=== PATIENT | female | born 1990 | race Caucasian/White ===

== ENCOUNTER → 2024-03-04 | Outpatient (CLI) | payer BC ==
[~2024-03-04] MED LIST: MOTRIN 800800 MG/TAB PO; NEURONTIN300 MG/CAP PO; TYLENOL 500MG500 MG PO
== END ==
LOC: MHCPAIN 14:37
DX: M47.817 Spondylosis without myelopathy or radiculopathy, lumbosacral region (principal); M54.50 Low back pain, unspecified
CPT/HCPCS: G0463

== ENCOUNTER → 2024-05-21 | Outpatient (CLI) | payer BC ==
[~2024-05-21] MED LIST changes: +Lidocaine PF 2% (20 MG/ML) 5 ML VIAL ONE; +Midazolam 2 MG/2 ML VIAL ONE; +fentaNYL 50 MCG/ML 2 ML VIAL ONE
== END ==
LOC: MHCPAIN 12:03
DX: M47.817 Spondylosis without myelopathy or radiculopathy, lumbosacral region (principal); M54.50 Low back pain, unspecified
CPT/HCPCS: J0665; J2250; J3010